=== PATIENT | female | born 1985 | race Caucasian/White ===

== ENCOUNTER 2020-11-15 16:29 | Emergency (ER) | payer BC ==
[~2020-11-15] VITALS: Ht 157.5 cm; Wt 88.5 kg
[2020-11-15 16:32] VITALS: BP 147/96
--- NOTE | 2020-11-15 16:43 | NUR ---
PT AMBULATED TO BED 9.
--- NOTE | 2020-11-15 16:54 | NUR ---
35 Y/O FEMALE C/O CONSTANT RLQ ABDOMINAL PAIN, NAUSEA X 3 DAYS. NO EPISODES OF VOMITING AT THIS TIME. ABD IS NON DISTENDED AND BOWEL SOUNDS ARE NORMOACTIVE. LBM: TODAY, REGULAR. PT DENIES ANY DIARRHEA AT THIS TIME. AAOX4. SLIGHT REBOUND TENDERNESS NOTED. COVID TESTED POSITIVE IN AUGUST 2020. DENIES COVID SYMPTOMS AT THIS TIME. PMH: HTN, BACK SURGERY
--- NOTE | 2020-11-15 17:30 | NUR ---
US AT BEDSIDE
[2020-11-15 17:37] LABS: BASOPHILS % (AUTO) 0.7 % (0.0-2.0); EOSINOPHILS # (AUTO) 0.2 K/uL (0-0.4); HEMATOCRIT 33.5 % (36-48); HEMOGLOBIN 11.2 g/dL (12.0-16.0); LYMPHOCYTES # (AUTO) 2.8 K/uL (2.5-16.5); LYMPHOCYTES % (AUTO) 39.4 % (20.5-51.1); MEAN CORPUSCULAR HEMOGLOBIN 27 pg (27-31); MEAN CORPUSCULAR HGB CONC 33 g/dL (33-37); MONOCYTES # (AUTO) 0.4 K/uL (0.8-1.0); NEUTROPHILS # (AUTO) 3.6 K/uL (1.8-7.7); NEUTROPHILS % (AUTO) 50.9 % (42.2-75.2); PLATELET COUNT (AUTO) 416 K/uL (140-450); RED BLOOD CELL COUNT(AUTO) 4.09 MIL/uL (4.20-5.40); RED CELL DISTRIBUTION WIDTH 15.4 % (11.6-13.7); WHITE BLOOD COUNT (AUTO) 7.1 K/uL (4.8-10.8)
[2020-11-15 17:53] LABS: ALBUMIN 3.9 g/dL (3.4-5.0); ANION GAP 10.6 (8-16); CARBON DIOXIDE 26.3 mmol/L (21-32); CREATININE 0.7 mg/dL (0.6-1.3); POTASSIUM 3.9 mmol/L (3.5-5.1); TOTAL BILIRUBIN 0.3 mg/dL (0.0-1.0)
--- NOTE | 2020-11-15 19:10 | NUR ---
RECEIVED PT IN BED 9, AWAKE, ALERT, WITH NO COMPLAINTS AT THIS TIME
[2020-11-15 19:16] LABS: APPEARANCE,URINE CLEAR (CLEAR); BILIRUBIN,URINE NEGATIVE (NEGATIVE); BLOOD, URINE NEGATIVE (NEGATIVE); COLOR,URINE YELLOW (YELLOW); LEUKOCYTE ESTERASE ,URINE NEGATIVE (NEGATIVE); NITRITE, URINE NEGATIVE (NEGATIVE); UGLUCOSE NEGATIVE (NEGATIVE)
[2020-11-15] MEDS ORDERED: KETOROLAC 30 MG/ML VIAL IM ONE (19:45)
--- NOTE | 2020-11-15 20:20 | NUR ---
PT TAKEN TO CT VIA W/C
--- NOTE | 2020-11-15 20:29 | NUR ---
PT RETURNED FROM CT VIA W/C
[2020-11-15] MEDS ORDERED: IBUP-2213 PO (21:56)
--- NOTE | 2020-11-15 22:05 | NUR ---
HAS BEEN RE-EXAMINED, RE-EVALUATED PER DR. BISHOP. IV D/C'D CATHETER INTACT Patient discharged with v/s stable. Written and verbal after care instructions given and explained. Patient alert, oriented and verbalized understanding of instructions. Ambulatory with steady gait. All questions addressed prior to discharge. ID band removed. Patient advised to follow up with PMD. Rx of IBUPROFEN given. Patient educated on indication of medication including possible reaction and side effects. Opportunity to ask questions provided and answered.
[2020-11-15 22:19] VITALS: BP 147/96
== END 2020-11-15 22:19 | disposition home or self-care (01) ==
LOC: MED 16:29
DX: N83.201 Unspecified ovarian cyst, right side (principal); R11.2 Nausea with vomiting, unspecified
CPT/HCPCS: 36415; 74176; 76856; 80053; 81003; 81025; 82150; 83690; 85025; 93976; 96372; 99285; J1885